=== PATIENT | male | born 1975 | race Hispanic/Latino ===

== ENCOUNTER 2018-02-24 21:02 | Emergency (ER) | payer OTHER ==
[2018-02-24] MEDS ORDERED: Lidocaine 1% Inj (20ml) IJ STA (21:31)
[2018-02-24] MEDS ORDERED: TDAP Vaccine 0.5 mL Syr IM ONE (21:32)
[2018-02-24 22:18] VITALS: O2SAT 100
--- NOTE | 2018-02-24 23:31 | ED PDOC ---
Arrival/HPI - General Chief Complaint: Abnormal Skin Integrity Time Seen by Provider: 02/24/18 21:12 - History of Present Illness Narrative History of Present Illness (Text): 42 y/o M p/w L hand lacerations suffered shortly prior to arrival. Arrived via EMS. Patient got fingers caught in machine, now with laceration to 2nd digit and 3rd digit. Reports feeling cold, dizzy. Past Medical History - Infectious Disease Hx of Infectious Diseases: None - Psychiatric Hx Substance Use: No Family/Social History Family/Social History: No Known Family HX Smoking Status: Heavy Smoker > 10 Cigarettes Daily Hx Alcohol Use: No Hx Substance Use: No Allergies/Home Meds Allergies/Adverse Reactions: Allergies No Known Allergies Allergy (Verified 02/24/18 21:10) Review of Systems - Physician Review All systems were reviewed & negative as marked: Yes - Review of Systems Constitutional: absent: Fevers Gastrointestinal: absent: Vomiting Physical Exam - Physical Exam Narrative Physical Exam (Text): Gen: Appears anxious Skin: 2cm laceration over 2nd digit distal phalanx involving plantar DIP and 3rd digit extensor surface over PIP. No areas of skin duskiness. Neuro: Moves all IP joints. Sensation intact in both digits CV: Radial pulse 2+. Cap refill < 2 seconds. Vital Signs Temp Pulse Resp BP Pulse Ox 02/24/18 21:11 98 F 102 H 20 136/84 100 Medical Decision Making ED Course and Treatment: Bacitracin applied, finger splints placed, have sutures removed in 10 days, watch for infection or skin duskiness/darkness. F/u Hand or return to ED. - Medication Orders Current Medication Orders: Discontinued Medications Lidocaine HCl (Lidocaine 1% (20ml)) 1 ml IJ STAT STA Stop: 02/24/18 21:32 Last Admin: 02/24/18 23:26 Dose: 1 ml Comments: by Tetanus/Reduced Diphtheria/Acell Pertussis (Boostrix Vaccine Inj) 0.5 ml IM .ONCE ONE Stop: 02/24/18 21:33 Last Admin: 02/24/18 23:27 Dose: 0.5 ml MAR Immunization Data Document 02/24/18 23:27 IT (Rec: 02/24/18 23:27 IT [facility] [id number]) Immunization Data Vaccine Information Sheet Given Yes Immunization Registry Document 02/24/18 23:27 IT (Rec: 02/24/18 23:27 [facility]-[id number]) Immunization Registry Consent Date 02/24/18 Disposition/Present on Arrival - Present on Arrival Any Indicators Present on Arrival: No History of DVT/PE: No History of Uncontrolled Diabetes: No Urinary Catheter: No History of Decub. Ulcer: No History Surgical Site Infection Following: None - Disposition Have Diagnosis and Disposition been Completed?: Yes Diagnosis: Finger laceration Disposition: HOME/ ROUTINE Disposition Time: 23:33 Patient Plan: Discharge Patient Problems: Current Active Problems Problem Status Onset Finger laceration Acute Condition: STABLE Discharge Instructions (ExitCare): Laceration Repair Prescriptions: Bacitracin Ointment [Bacitracin] 1 appl TOP TID #1 tube Referrals: Sally Obrien MD [Staff Provider] - Follow up with primary Aron Sanderson MD [Staff Provider] - Follow up with primary Laceration - Laceration Repair No standard instances Wound Length (In cm): 2cm, 2cm Description Of Wound: Linear Wound Cleansed With: Betadine, Sterile Saline Anesthesia: Lidocaine 2% Wound Examination: Irrigated With Saline, No FB With Wound Exploration, No Tendon Injury With Wound Exploration Wound Debridement/Revision: Wound Margins Revised Wound Closure: Suture (5-0 ethilon, 15 in 2nd digit, 4 in 3rd digit) Suture Technique And Material Used: Interrupted Wound Complexity: Complex
[2018-02-25 00:01] VITALS: BP 132/80; PULSE 89; RESP 17; TEMP 98
== END 2018-02-25 00:02 | disposition home or self-care (01) ==
LOC: ED 21:02
DX: S61.211A Laceration without foreign body of left index finger without damage to nail, initial encounter (principal); S61.213A Laceration without foreign body of left middle finger without damage to nail, initial encounter; W31.9XXA Contact with unspecified machinery, initial encounter; Z23 Encounter for immunization; F17.210 Nicotine dependence, cigarettes, uncomplicated